=== PATIENT | female | born 1985 | race African-American/Black ===

== ENCOUNTER 2016-11-13 10:11 | Emergency (ER) | payer OTHER ==
[~2016-11-13] VITALS: Ht 170.2 cm; Wt 128.8 kg
[~2016-11-13 10:11] MED LIST: FLOMAX0.4 MG PO; FLONASE 0.05%50 MCG NASAL; K-DUR10 MEQ PO; METFORMIN HCL500 MG PO; PHENERGAN 25 MG25 M1 PO; TESSALON PERLE100 MG PO
[2016-11-13 11:01] LABS: HEMATOCRIT 31.8 % (37.0-47.0); HEMOGLOBIN 10.3 gm/dL (12.0-15.0); MCH 23.5 pg (26.0-34.0); MCHC 32.5 g/dL (28.0-37.0); MCV 72.5 fL (80.0-100.0); PLATELET COUNT 252 thou/uL (150-400); RBC 4.38 mil/uL (4.20-5.00); RDW 17.6 % (10.5-14.5); WBC 15.3 thou/uL (4.0-11.0)
[2016-11-13 11:03] LABS: MANUAL DIFF YES
[2016-11-13 11:19] LABS: ALBUMIN 3.4 g/dL (3.4-5.0); CALCIUM 8.6 mg/dL (8.5-10.1); TOTAL PROTEIN 8.3 g/dL (6.4-8.2)
[2016-11-13 11:22] LABS: POTASSIUM 2.7 mmol/L (3.5-5.1)
[2016-11-13 11:29] LABS: ABSOLUTE NEUTROPHILS 12.5 thou/uL (1.4-8.2); ANISOCYTOSIS 1+; OVALOCYTES 1+; TOTAL CELL COUNT 100
[2016-11-13 11:30] LABS: HYPOCHROMASIA 1+; MICROCYTES 1+
[2016-11-13] MEDS ORDERED: AUGMENTIN 875875 MG PO (13:10)
[2016-11-13] MEDS ORDERED: POTASSIUM20 PO (15:24)
[2016-11-13] MEDS ORDERED: NORCO 5-325 TA1 EACH PO (15:25)
[2016-11-13 16:37] VITALS: BP 145/96
== END 2016-11-13 13:11 | disposition left against medical advice (07) ==
LOC: ER 10:11
PROVIDERS: Physician Assistant
DX: A41.9 Sepsis, unspecified organism (principal); N61.1 Abscess of the breast and nipple; E87.6 Hypokalemia; D72.829 Elevated white blood cell count, unspecified; N61.0 Mastitis without abscess; I10 Essential (primary) hypertension; E11.9 Type 2 diabetes mellitus without complications; Z90.89 Acquired absence of other organs; Z98.890 Other specified postprocedural states

== ENCOUNTER → 2016-11-21 | Outpatient (CLI) | payer OTHER ==
[~2016-11-21] MED LIST changes: +AUGMENTIN 875875 MG PO; +NORCO 5-325 TA1 EACH PO; +POTASSIUM20 PO
== END ==
LOC: RAD 11-17 01:54
DX: N63 Unspecified lump in breast (principal)

== ENCOUNTER 2018-04-29 13:43 | Emergency (ER) | payer OTHER ==
[~2018-04-29] VITALS: Ht 167.6 cm; Wt 113.4 kg
[2018-04-29 16:32] LABS: HEMATOCRIT 35.3 % (37.0-47.0); HEMOGLOBIN 11.6 gm/dL (12.0-15.0); MCH 24.9 pg (26.0-34.0); MCHC 32.8 g/dL (28.0-37.0); MCV 75.9 fL (80.0-100.0); RBC 4.65 mil/uL (4.20-5.00); RDW 14.9 % (10.5-14.5); WBC 11.3 thou/uL (4.0-11.0)
[2018-04-29 16:40] VITALS: BP 125/65
[2018-04-29] MEDS ORDERED: NORVASC5 MG PO (16:42)
[2018-04-29] MEDS ORDERED: HYDROCHLOROTHIA25 M2 PO (16:42)
[2018-04-29 16:43] LABS: CALCIUM 9.2 mg/dL (8.5-10.1); CREATININE 0.9 mg/dL (0.6-1.0); POTASSIUM 4.2 mmol/L (3.5-5.1)
[2018-04-29] MEDS ORDERED: KLOR-CON 1010 MEQ PO (16:43)
[2018-04-29] MEDS ORDERED: MOBIC7.5 MG PO (17:46)
== END 2018-04-29 18:15 | disposition home or self-care (01) ==
LOC: ER 13:43
PROVIDERS: Physician Assistant
DX: B34.9 Viral infection, unspecified (principal); M79.10 Myalgia, unspecified site; I10 Essential (primary) hypertension; E11.9 Type 2 diabetes mellitus without complications; Z98.890 Other specified postprocedural states

== ENCOUNTER → 2020-06-16 | Emergency (ER) | payer OTHER ==
[~2020-06-16] VITALS: Ht 170.2 cm; Wt 158.8 kg
[~2020-06-16] MED LIST changes: +HYDROCHLOROTHIA25 M2 PO; +KLOR-CON 1010 MEQ PO; +MOBIC7.5 MG PO; +NORVASC5 MG PO
[2020-06-16 17:59] VITALS: BP 148/99
== END ==
LOC: ER 17:46
DX: M79.652 Pain in left thigh (principal); Z53.21 Procedure and treatment not carried out due to patient leaving prior to being seen by health care provider